=== PATIENT | female | born 1990 | race Two or more races ===

== ENCOUNTER 2019-01-08 03:38 | Emergency (ER) | payer OTHER ==
[~2019-01-08] VITALS: Ht 172.7 cm; Wt 63.5 kg
--- NOTE | 2019-01-08 04:10 | NUR ---
DR. ROLAND AT BEDSIDE FOR MSE.
[2019-01-08] MEDS ORDERED: IBUPROFEN 600 MG TABLET PO ONE (04:15)
[2019-01-08] MEDS ORDERED: IBUPROFEN 600 MG TABLET ONE (04:24)
[2019-01-08] MEDS ORDERED: AMOXicillin 250 MG CAPSULE PO ONE (05:00)
[2019-01-08] MEDS ORDERED: AMOXicillin 250 MG CAPSULE ONE (05:00)
[2019-01-08 05:02] VITALS: BP 114/81
--- NOTE | 2019-01-08 05:02 | NUR ---
Patient discharged to home in stable conditon. Written and verbal after care instructions given. Patient verbalizes understanding of instructions. PATIENT LEFT WITH STABLE GAIT.
== END 2019-01-08 05:03 | disposition home or self-care (01) ==
LOC: ER 03:47
DX: B34.9 Viral infection, unspecified (principal); J02.0 Streptococcal pharyngitis; F32.9 Major depressive disorder, single episode, unspecified
CPT/HCPCS: 36415; 86403; A4663